=== PATIENT | female | born 1960 | race Caucasian/White ===

== ENCOUNTER 2020-04-15 09:25 | Emergency (ER) | payer OTHER ==
[~2020-04-15] VITALS: Ht 175.3 cm; Wt 68.0 kg
[2020-04-15 09:33] VITALS: BP 143/92
--- NOTE | 2020-04-15 09:38 | NUR ---
AMB TO [facility]
--- NOTE | 2020-04-15 09:45 | NUR ---
DR REDDY EVALUATING PT AT THIS TIME
--- NOTE | 2020-04-15 09:55 | NUR ---
PT SEEN AND DISCHARGED BY DR. REDDY. NO NURSING CARE PROVIDED.
--- NOTE | 2020-04-15 09:55 | NUR ---
Patient discharged with v/s stable. Written and verbal after care instructions given and explained. Patient alert, oriented and verbalized understanding of instructions. Ambulatory with steady gait. All questions addressed prior to discharge. ID band removed. Patient advised to follow up with PMD. Rx of ADVAIR AND ALBUTEROL given. Patient educated on indication of medication including possible reaction and side effects. Opportunity to ask questions provided and answered.
[2020-04-15 09:57] VITALS: BP 143/92
== END 2020-04-15 09:55 | disposition home or self-care (01) ==
LOC: MED 09:25
DX: J44.1 Chronic obstructive pulmonary disease with (acute) exacerbation (principal); F17.210 Nicotine dependence, cigarettes, uncomplicated; Z76.0 Encounter for issue of repeat prescription; Z98.890 Other specified postprocedural states; Z71.6 Tobacco abuse counseling
CPT/HCPCS: 99283